=== PATIENT | female | born 1995 | race Caucasian/White ===

== ENCOUNTER 2023-09-26 17:02 | Inpatient (IN) | payer OTHER ==
[~2023-09-26] VITALS: Ht 180.3 cm; Wt 104.1 kg
[~2023-09-26 17:02] MED LIST: PRENATAL
[2023-10-03] MEDS ORDERED: Ondansetron 4 MG/2 ML VIAL IV SCH (15:00)
[2023-10-03] MEDS ORDERED: LR 1,000 ML IV SCH (15:00)
[2023-10-04] VITALS (22 sets, daily range): BP systolic 109–142; BP diastolic 51–109; PULSE 66–87; TEMP 97.9–99.3
[2023-10-04] MEDS ORDERED: LR 1,000 ML IV SCH (06:30)
[2023-10-04 06:38] LABS: BASO % 0.2 % (0.0-2.0); EOS % 0.2 % (0.0-4.0); GRAN # 9.8 K/mm3 (1.4-6.5); HEMATOCRIT 41.4 % (37.0-47.0); LYMPH # 2.4 K/mm3 (1.2-3.4); MEAN CELL VOLUME 86 fl (80.0-100.0); MEAN CORPUSCULAR HEMOGLOBIN 29 pg (27-31); MEAN CORPUSCULAR HGB CONC 34 g/dl (33.0-37.0); MEAN PLATELET VOLUME 10.7 fl (7.4-10.4); MONO # 0.8 K/mm3 (0.1-0.6); MONO % 6.2 % (1.7-9.3); PLATELET COUNT 317 K/mm3 (130-400); RED BLOOD COUNT 4.81 M/mm3 (4.10-5.30); REDCELL DISTRIBUTION WIDTH-CV 13.2 % (11.5-14.5)
[2023-10-04] MEDS ORDERED: ZENZEDI5 MG PO (06:49)
[2023-10-04] MEDS ORDERED: TYLENOL 500MG500 MG PO (06:50)
[2023-10-04] MEDS ORDERED: Ketorolac 30 MG/ML VIAL ONE (07:53)
[2023-10-04] MEDS ORDERED: NS 10 ML IV ONE (07:53)
[2023-10-04] MEDS ORDERED: Ondansetron 4 MG/2 ML VIAL ONE (07:53)
[2023-10-04] MEDS ORDERED: dexAMETHasone 10 MG/ML VIAL ONE (07:53)
[2023-10-04] MEDS ORDERED: Oxytocin 10 UNITS/ML VIAL ONE (07:53)
[2023-10-04] MEDS ORDERED: Magnes Hydrox (MOM) 80 MG/ML 30 ML CUP PO PRN (08:30)
[2023-10-04] MEDS ORDERED: Loratadine 10 MG TAB PO PRN (08:30)
--- NOTE | 2023-10-04 08:45 | NUR ---
PT HOLDING . LAYING ON BLOOD PRESSURE CUFF AND PT ARM BENT TO FACILITATE HOLDING INFANT.
[2023-10-04] MEDS ORDERED: LR 1,000 ML IV PRN (09:30)
[2023-10-04] MEDS ORDERED: Measles/Mumps/Rubella Virus Vaccine Live w Diluent 0.5 ML VIAL SQ SCH (09:30)
[2023-10-04] MEDS ORDERED: oxyCODONE/Acetaminophen 5-325 MG TAB PO PRN (09:30)
[2023-10-04] MEDS ORDERED: Ondansetron 4 MG/2 ML VIAL IV PRN (09:30)
[2023-10-04] MEDS ORDERED: Naloxone 0.4 MG/ML VIAL IV PRN (09:30)
[2023-10-04] MEDS ORDERED: MOTRIN 800800 MG/TAB PO (10:32)
[2023-10-04] MEDS ORDERED: PERCOCET 325 MG1 TA2 PO (10:32)
[2023-10-04] MEDS ORDERED: LR 1,000 ML IV ONE (14:00)
[2023-10-04] MEDS ORDERED: Ibuprofen 800 MG TAB PO SCH (14:22)
[2023-10-04] MEDS ORDERED: Rho(D) Imm Globulin 1,500 UNITS (300 MCG)/2 ML SYRINGE IV\\IM SCH (15:30)
[2023-10-04] MEDS ORDERED: Sennosides/Docusate 8.6-50 MG TAB PO SCH (17:00)
[2023-10-04] MEDS ORDERED: traZODone 50 MG TAB PO PRN (21:00)
[2023-10-05 00:10] VITALS: BP 122/49; PULSE 65; TEMP 98.2
[2023-10-05 05:10] VITALS: BP 126/68; PULSE 69; TEMP 97.1
[2023-10-05 07:30] VITALS: BP 129/78; PULSE 82; TEMP 98.3
[2023-10-05 15:55] VITALS: BP 131/73; PULSE 93; TEMP 97.9
[2023-10-05] MEDS ORDERED: Ibuprofen 800 MG TAB PO SCH (16:00)
[2023-10-05 20:00] VITALS: BP 126/77; PULSE 87; TEMP 98.3
--- NOTE | 2023-10-06 04:55 | NUR ---
DISCUSSED BABY WEIGHT LOSS OF 10% WITH MOTHER WELL PRESENCE OF URIC ACID CRYSTALS OBSERVED IN DIAPER DURING DIAPER CHANGE IN NURSERY AT 0420 ON 10/06/23. OFFERED OPTION OF SUPPLEMENTAL FORMULA FOR BABY AFTER SESSIONS; MOM DECLINED.
[2023-10-06 07:15] VITALS: BP 138/80; PULSE 83; TEMP 98.2
--- NOTE | 2023-10-06 10:30 | NUR ---
Discharge instructions reviewed. Pt verbalizes understanding.
== END 2023-10-06 10:45 | disposition home or self-care (01) | DRG 788 ==
LOC: OB 10-04 05:33
PROVIDERS: ADMIT Obstetrics & Gynecology
PROC: 10D00Z1 Extraction of Products of Conception, Low, Open Approach (ICD-10-PCS; principal; 2023-10-04)
DX: O34.211 Maternal care for low transverse scar from previous cesarean delivery (principal); Z37.0 Single live birth; O99.344 Other mental disorders complicating childbirth; F41.9 Anxiety disorder, unspecified; F90.9 Attention-deficit hyperactivity disorder, unspecified type; Z3A.39 39 weeks gestation of pregnancy
CPT/HCPCS: J0665; J0690; J1100; J1885; J2405; J2590; J2791; J7120